=== PATIENT | female | born 1995 | race Caucasian/White ===

== ENCOUNTER 2017-08-02 21:08 | Emergency (ER) | payer MEDICAID ==
[~2017-08-02] VITALS: Ht 154.9 cm; Wt 54.4 kg
[~2017-08-02 21:08] MED LIST: ALBUTEROL0.09 MG/A2 IH; AMOXIL250 MG PO; AMOXIL500 M1 PO; BACTRIM DS 8001 TA1 PO; CIPRO 500MG TA500 MG PO; CLARITIN 10MG T10 MG PO; FIORICET1 CAP PO; FLONASE 50 MCG16 GM; KEFLEX500 M1 PO; MACROBID100 M3 PO; NAPROSYN 250MG250 MG PO; NAPROSYN500 M1 PO; NOMEDS XX; PRENATA1 CTB PO; PROVENTIL0.09 MG/A1 IH; TYLENOL W/CODEI1 TA2 PO; ZOFRAN4 MG PO
[2017-08-02] MEDS ORDERED: PRENATAL PLUS1 TA1 PO (21:18)
--- OUTSIDE RECORDS SUMMARY | 2017-08-02 21:30 | External Medical Summary Rpt | CCD ---
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 INC ROPHYLAXI S /DX 1ST TO 1 HR THERAPEUT 30113 [facility] IC 5 [facility] HOSP INJECTION INC INC IV PUSH EACH NEW DRUG URNLS DIP 46721 [facility] [place] 5 [facility] STICK/TAB INC [place] [address] [facility] [place]OMEN & 5 MEDICAL CARLA PELVIS IMAGING W/O ASS CONTRAST MATERIAL IADNA 77356 [facility] NEISSERIA 5 [facility] DEPT [facility] DEPT GONORRHOE APURVA APURVA AE AMPLIFIED PROBE TQ WET Q0111 [facility] MOLINA 5 [facility] INCL PREP [facility] DEPT [facility] DEPT VAGINAL APURVA APURVA CERV/SKIN SPECIMENS CONTRACEP A4267 [facility] TIVE 5 [facility] SUPPLY [facility] DEPT [facility] DEPT CONDOM APURVA APURVA MALE EACH IADNA 80592 [facility] CHLAMYDIA 5 [facility] DEPT [facility] DEPT TRACHOMAT APURVA APURVA IS AMPLIFIED PROBE TQ SMR PRIM 59989 [facility] SRC WET 5 [facility] DEPT [facility] [place] [address] Á[facility] ABDOMEN & 4 MEDICAL CARLA PELVIS IMAGING W/O ASS CONTRAST MATERIAL MRI ANY 03415 [facility] JT UPPER 4 DANA DANA EXTREMITY W/O CONTRAST MATRL RADEX 17658 RADIOLOGY DEVANTE SHOULDER 4 MAR COMPLETE ASSOCIATE MINIMUM 2 S OF NOTH VIEWS GONADOTRO [address] PIN 4 ALYSSA ALYSSA CHORIONIC FT FT BRYAN ADAMS QUALITATI VE SHOULDER L3650 [facility] 4 TECHNOLOG TECHNOLOG FIG 8 IES INC IES INC ABDUCT RESTRAINE R PREFAB RADEX 30270 RADIOLOG[facility] DEVANTE ELBOW 4 MAR COMPLETE ASSOCIATE MINIMUM 3 [place] [address] [facility] STREPTOCO 3 [facility] CCUS INC INC GROUP A CUL BACT 01181 [facility] XCPT 3 [facility] URINE INC INC BLOOD/STO OL AEROBIC ISOL CUL BACT 99502 COMBINED COMBINED XCPT 2 PHYSICIAN PHYSICIAN URINE S LA S LA BLOOD/STO OL AEROBIC ISOL ANTIBODY 90755 COMBINED COMBINED CHLAMYDIA 2 PHYSICIAN PHYSICIAN S LA S LA INSJ 53585 MICHAEL RODRIGUEZ NON-BIODE 2 ASYA ASYA GRADABLE DRUG DELIVERY IMPLANT ETONOGEST J7307 MICHAEL RODRIGUEZ REL 2 ASYA ASYA CNTRACPT IMPL SYS INCL IMPL & SPL URINE 70439 MICHAEL RODRIGUEZ 2 ASYA ASYA TEST VISUAL COLOR CMPRSN METHS IAADI 55315 [facility] INFFLUENZ 1 [facility] A A VIRUS INC INC IAADI 48968 [facility] INFLUENZA 1 [facility] [place] [address] [facility] STREPTOCO 1 [facility] CCUS INC INC GROUP A REMOVAL 8623 [facility] OF NAIL 0 [facility] NAILBED INC INC OR NAIL FOLD OPHTH 88495 GUZMAN HINDS, MEDICAL 9 [place] XM&EVAL COMPRHNSV ESTAB PT 1/> DETERMINA 86880 GUZMAN HINDS TION 9 [place] [address] [facility] STREPTOCO 9 [facility] CCUS INC INC GROUP A IAADI 82306 [facility] INFFLUENZ 9 [facility] A A VIRUS INC INC IAADI 57309 [facility] INFLUENZA 9 [facility] B VIRUS INC INC SCREENING 54729 [facility] TEST 8 HEALTH N CO PURE [facility] URNLS DIP 70442 [facility] 8 [facility] STICK/TAB INC INC LET REAGENT AUTO MICROSCOP Y Encounters Encounter Start End Date Code Location Performer Type Date EMERGENCY 73938 [facility] 7 7 [facility] DEPARTMEN INC T VISIT HIGH/URGE NT SEVERITY EMERGENCY 30873 [facility] PHYSICIAN [facility]ISIT , [facility] HIGH SEVERITY& THREAT [facility] - 7 7 [facility] OUTPATIEN INC T OFFICE 15610 [facility] 7 7 [facility] T VISIT 5 [facility] - 7 7 [facility] OUTPATIEN INC T OFFICE 12213 [facility] 7 7 ALYSSA HORNER T VISIT 25 PHYSICIAN MINUTES [facility] - 7 7 ALYSSA OUTPATIEN T [facility] - 6 6 [facility] 07782 ROXANN HAQ 6 6 PHYSICIAN DEPARTMEN S, [facility] T VISIT MODERATE SEVERITY [facility] - 6 6 N INPATIENT COMMUNTIY [facility] CHANDU - 6 6 [facility] OUTPATIEN INC T [facility]ICE 00188 [facility] PHYSICIAN JOLENE T VISIT S GROUP 15 [facility]U - 6 6 [facility] OUTPATIEN INC T OFFICE 96982 [facility] 6 6 ALYSSA RUSSO T VISIT 15 PHYSICIAN MINUTES [facility] ST - 6 6 ALYSSA OUTPATIEN MED CTR 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 OFFICE 12541 ST OUTPATIEN 6 6 ALYSSA T VISIT MED CTR [address] MINUTES EMERGENCY 11864 [facility] 6 6 EMERGENCY NICOLE DEPARTMEN T VISIT PHYSICIAN HIGH/URGE S NT SEVERITY OFFICE 14095 [facility] OUTPATIEN 6 6 PHYSICIAN JOLENE T VISIT S GROUP 15 MINUTES OFFICE 39745 [facility] OUTPATIEN 6 6 PHYSICIAN JOLENE T VISIT S GROUP 15 MINUTES OFFICE 05097 [facility] OUTPATIEN 6 6 PHYSICIAN JOLENE T VISIT S GROUP 15 MINUTES HOSPITAL [facility] - 6 6 [facility] OUTPATIEN INC T OFFICE 76456 [facility] OUTPATIEN 6 6 ALYSSA MAR T NEW 30 MINUTES PHYSICIAN S OFFICE 77103 [facility] OUTPATIEN 6 6 PHYSICIAN JOLENE T VISIT S GROUP 15 MINUTES OFFICE 89181 [facility] OUTPATIEN 6 6 PHYSICIAN JOLENE T VISIT S GROUP 15 MINUTES OFFICE 15827 [facility] OUTPATIEN 6 6 PHYSICIAN JOLENE T VISIT S GROUP 15 MINUTES HOSPITAL [facility] - 6 6 [facility] OUTPATIEN INC T INITIAL 51297 [facility] PREVENTIV 6 6 PHYSICIAN JOLENE E S GROUP MEDICINE NEW PT AGE 18-39YRS EMERGENCY 01928 ROXANN MILLARD 6 6 PHYSICIAN BRITTANEY DEPARTMEN S, PLLC T VISIT HIGH/URGE NT SEVERITY OFFICE 19926 [facility] 6 [facility] T VISIT HLTH DEPT HLTH DEPT 15 APURVA APURVA MINUTES [facility] ST[facility] - 5 5 ALYSSA OUTPATIEN SELENA T EMERGENCY [address] [facility]IS[facility] LOW/MODER SEVERITY EMERGENCY 52888 TYREL MONGE 5 5 EMERGENCY DEPARTMEN T VISIT PHYSICIAN HIGH/URGE S NT SEVERITY EMERGENCY 86320 [facility] CHEEK, 5 5 [facility] T VISIT P MODERATE SEVERITY HOSPITAL [facility] - 5 5 [facility] OUTPATIEN INC T EMERGENCY 69690 [facility] HIGH/URGE NT SEVERITY INITIAL 08500 [facility] PRE[facility] 5 5 [facility] DEPT [facility] DEPT MEDICINE [facility] PT AGE 18-39YRS [facility] - 5 [facility] EM[facility] 87854 TYREL GARCÍA 5 5 EMERGENCY [facility] T VISIT PHYSICIAN HIGH/URGE S NT SEVERITY EMERGENCY 78725 [facility] 5 5 [facility]IS[facility] LOW/MODER SEVERITY EMERGENCY 55686 TYREL HALL 5 5 EMERGENCY [facility] T VISIT PHYSICIAN HIGH/URGE S NT SEVERITY EMERGENCY 47663 ST. 5 5 [facility] LOW/MODER SEVERITY [facility] 63275 [facility] 4 4 [facility] DEPARTMEN INC T VISIT LOW/MODER SEVERITY HOSPITAL [facility] - 4 4 [facility] OUTPATIEN INC T EMERGENCY [address] [facility] 4 4 OPAL VISIT EMERGENCY HIGH PHYS SEVERITY& THREAT [facility] ST - [address] 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 EMERGENCY 75619 AKIL MAGAÑAA 4 4 DEPARTMEN T VISIT HIGH/URGE NT SEVERITY HOSPITAL ST - 4 4 ALYSSA OUTPATIEN FT T [facility] Emergency SKYE AMOR MD (ER) 3 16:28 3 17:18 [facility] EMERGENCY 47399 [facility] 3 3 [facility] DEPARTMEN INC T VISIT LOW/MODER SEVERITY HOSPITAL [facility] - 3 3 [facility] OUTPATIEN INC T EMERGENCY 21640 ZULEYMA AMOR 3 3 JAYSON JAYSON DEPARTMEN T VISIT MODERATE SEVERITY EMERGENCY 65831 PRISCILLA BERMUDEZ 1 1 EMERGENCY III [facility] T VISIT MODERATE SEVERITY EMERGENCY 14151 [facility] 1 1 [facility] DEPARTMEN INC T VISIT LOW/MODER SEVERITY HOSPITAL [facility] - 1 1 [facility] OUTPAT[facility] T [facility]92 [facility] 1 [facility] T [facility]ISIT [facility]ES OFF[facility] 07345 [facility] 1 1 [facility] T VISIT [facility]ES OFFICE 27560 [facility] 1 1 [facility] T VISIT [facility] MIN[facility] EMERGENCY 84593 [facility] 0 0 [facility] DEPARTMEN INC T VISIT LOW/MODER SEVERITY HOSPITAL [facility] - 0 0 [facility] OUTPATIEN INC T OFFICE 62906 [facility] 0 0 [facility] T VISIT [facility]ES OFFICE 52895 [facility] 0 0 [facility] T VISIT [facility]ES OFFICE 25784 [facility] 9 9 [facility] T VISIT 5 [facility]ES OFFICE 22933 [facility] 9 9 [facility] T VISIT 5 [facility] MIN[facility]ES OFFICE 64901 [facility] 9 9 [facility] T VISIT 5 [facility]ES OFFICE 32068 [facility] 9 9 [facility] T VISIT 5 [facility] MINUTES EMERGENCY 16793 [facility] 9 9 [facility] DEPARTMEN INC T VISIT MODERATE SEVERITY HOSPITAL [facility] - 9 9 [facility] OUTPATIEN INC T EMERGENCY 24337 PRISCILLA CORRIGAN, 9 9 EMERGENCY [facility] T VISIT HIGH/URGE ASSOCIATE NT S SEVERITY OFFICE 30752 [facility] 9 9 [facility] T VISIT INTERNAL DOUG F 15 MED MINUTES OFFICE 23569 [facility] OUTPATIEN 8 8 AGAPITO FLORES T VISIT INTERNAL 15 MED MINUTES INITIAL 63913 [facility] PREVENTIV 8 8 [facility]ALTH N [facility] NEW PT AGE 5-11 Y[facility] EMERGENCY 35743 [facility] 8 8 [facility] DEPARTMEN INC T VISIT HIGH/URGE NT SEVERITY HOSPITAL [facility] - 8 8 [facility] OUTPATIEN INC T
--- OUTSIDE RECORDS SUMMARY | 2017-08-02 21:30 | External Medical Summary Rpt | CCD ---
Author Author , DERIK Organization DERIK Address Unknown Phone [email or web address] Care Team Providers Care Public Improvement Inspector Name Role Phone [employer] Unavailable Unavailable INC, [employer] BEAVEN, BEAVEN Unavailable Unavailable BEAVEN VILLARREAL, BEAVEN Unavailable Unavailable VILLARREAL BEINEKE, BEINEKE Unavailable Unavailable [facility] Unavailable Unavailable [facility], [facility] Unavailable Unavailable [facility]ATORIES, [facility] RODRIGUEZ ASYA, RORDIGUEZ Unavailable Unavailable ASYA RODRIGUEZ ASYA, RODRIGUEZ Unavailable Unavailable ASYA MARIANO MAR, Unavailable Unavailable [facility]IANO [facility] Unavailable Unavailable [facility], [facility] Un[facility] Unavailable [facility], [facility] Unavailable Unavailable PHYSIC[facility]ANS, [facility] RAFIQ CARLA, Unavailable Unavailable RAFIQ CARLA [id number], Unavailable Unavailable [id number] AMERICA HINDS, Unavailable Unavailable AMERICA HINDS DANA, CLIFTON Unavailable Unavailable DANA CLIFTON DANA, CLIFTON Unavailable Unavailable JR JOELLEN RUFFIN, Unavailable Unavailable JR JOELLEN CHEEK BRITTANEY, VENICE Unavailable Unavailable BRITTANEY [facility] Un[facility] Unavailable [facility], [facility] HARPEL JOLENE, HARPEL Unavailable Unavailable JOLENE [facility] Unavailable Unavailable INC, [facility] Unavailable Unavailable HOSPITAL P, [facility]PITAL P MARK MCDANIEL HARVEY, Unavailable Unavailable MARK [facility], Unavailable Unavailable [facility] ANDREW PA Unavailable Unavailable [facility] Un[facility] PS, [facility], [facility], [facility], Unavailable Unavailable [facility] LEHMKUHL RAC, Unavailable Unavailable [facility] DEBBIE ANT, DEBBIE ANT Unavailable Unavailable [facility] Unavailable Unavailable SERVICES, [facility] BREE PHILLIPS, DOUG Unavailable Unavailable F, BREE PHILLIPS, DOUG [facility], Unavailable Unavailable PLL[facility], [facility] Unavailable Unavailable CENTER, [facility] PERKS, IV DULCE, PERKS, Unavailable [...] [facility] Unavailable Unavailable [facility] Unavailable Unavailable MANAGER CONSUMER INSIGHTS ST, [facility] MANAGER CONSUMER INSIGHTS ST [facility] Unavailable Unavailable PHYSICIANS, [facility] Unavailable Unavailable SELENA, [facility], Unavailable Unavailable [facility] Unavailable Unavailable [facility]OSPITALS, [facility], Unavailable [facility]available [facility]available [facility]available #[id number], [id number] Un[facility] Unavailable [facility]available [facility] WEHRMAN III DULCE, Unavailable Unavailable [facility] [...] PLLC N W/IRREGULAR CYCLE R109 UNSPECIFIED 04-21-2017 [facility] Z720 TOBACCO USE 04-21-[address] [facility] [id number] ENCOUNTER 03-17-2017 [facility] N INJECT CONTRACEPT Z3046 ENCOUNTER 03-17-2017 [facility]ILL[facility] SERV E IMPL [facility] SUBDERMAL CONTRACEPT J309 ALLERGIC 12-07-2016 [facility] UNSPECIFIED INC N939 ABNORMAL 11-20-2016 [facility] & AL[facility] BLEEDING UNSPECIFIED M549 DORSALGIA 10-07-2016 [facility] O9089 OTHER 10-07-2016 [facility] THE [facility]PITALS PUERPERIUM NEC R5383 OTHER 10-07-2016 [facility] C64679 ENCOUNTER 10-07-2016 [facility] IN[facility] PRSC SERV IMPL [facility] SUBDERMAL CONTRACEPT Z3202 ENCOUNTER 10-07-2016 [facility] FOR SERV [facility] TEST RESULT NEGATIVE D29101 CELLULITIS 08-24-2016 [facility] OF [facility] PHYSICIANS, [facility] B40241 SUPERVISION 08-05-2016 [facility] RISK PREG FOUNDATION UNS TRIMESTER [id number] CHORIOAMNIO 08-05-2016 [facility] N[facility] THIRD SERV TRIMESTER FOUNDATION NA/UNS O660 OBSTRUCTED 08-05-2016 [facility] LABOR DUE SERV TO SHOULDER FOUNDATION DYSTOCIA O700 FIRST 08-05-2016 [facility] COMMUNTIY PERINEAL HOSPITA LACERATION DURING DELIVERY O80 ENCOUNTER 08-05-2016 [place] [facility] FULL-TERM GROUP PS UNCOMPLICAT ED DELIVERY Z370 SINGLE LIVE 08-05-2016 [facility] Z3A39 39 WEEKS 08-05-2016 [facility] COMMUNTIY OF HOSPITA [id number] PERSONAL 08-05-2016 [facility] HISTORY OF COMMUNTIY NICOTINE HOSPITA DEPENDENCE M545 LOW BACK 08-04-2016 [facility]IN [facility] INC O2693 08-04-2016 [facility]ATED [facility] CONDITIONS INC UNS 3RD TRIMESTER O471 FALSE LABOR 08-04-2016 [facility] AT/AFTER PHYSICIANS 37 GROUP COMPLETED WEEKS GEST Z131 ENCOUNTER 07-31-2016 [facility] FOR PHYSICIANS SCREENING GROUP FOR DIABETES MELLITUS Z36 ENCOUNTER 07-31-2016 [facility] FOR PHYSICIANS GROUP SCREENING OF MOTHER T17838 OTHER SPEC 06-27-2016 [facility] RELATED PHYSICIANS COND UNS TRIMESTER Z3A33 33 WEEKS 06-27-2016 [facility] AL[facility] OF PHYSICIANS O7D326 INJ 06-26-2016 ST POISON/OTH AL[facility]SSA CONSEQ EXT MED CTR MANAGER CONSUMER INSIGHTS CAUS COMP ST PREG 3RD TRI V76608W ABRASION OF 06-26-2016 ST ABDOMINAL ALYSSA WALL MED CTR MANAGER CONSUMER INSIGHTS INITIAL ST ENCOUNTER E9331IG UNSPECIFIED 06-26-2016 [facility]Y ABDOMEN PHYSICIANS INITIAL ENCOUNTER Z3A30 30 WEEKS 06-26-2016 [facility]STATION [facility]ERGENCY OF PHYSICIANS Z3A34 34 WEEKS 06-26-2016 ST GESTATION ALYSSA OF MED CTR MANAGER CONSUMER INSIGHTS ST Z3480 ENC 06-04-2016 [facility] SUPERVISION PHYSICIANS OTH NORMAL GROUP PREG UNS TRIMESTER Z113 ENCOUNTER 05-14-2016 [facility] SCREEN PHYSICIANS INFECTIONS GROUP SEXL MODE TRANSMISSN [id number] DECREASED 04-28-2016 [facility] MOVEMENTS INC SECOND TRI NA/UNS O4703 FALSE LABOR 04-28-2016 [facility] BEFORE 37 PHYSICIANS CMPLETE GROUP WEEKS GEST [...] VAGINITIS REFERNCE LABORATORIE S O200 THREATENED 12-31-2015 [facility] B13511 ENCOUNTER 12-31-2015 [facility] CUSTOMER LOGISTICS MANAGER EXAM PHYSICIANS GENERAL RTN GROUP W/O ABNORMAL FIND Z048 ENCOUNTER 12-31-2015 [facility] OBSERVATION INC OTHER SPEC REASONS Z3400 ENCOUNTER 12-31-2015 [facility] SUPRVISN PHYSICIANS NORM FIRST GROUP UNS TRI N898 OTHER 12-22-2015 [facility] SPECIFIED PHYSICIANS, NONINFLAMMA PLLC TORY DISORDERS VAGINA O209 HEMORRHAGE 12-22-2015 [place] [facility] UNSPECIFIED O2691 12-22-2015 [facility] RELATED PHYSICIANS, CONDITIONS PLLC UNS 1ST TRIMESTER Z3201 ENCOUNTER 12-04-2015 [facility] TEST RESULT APURVA POSITIVE V2543 SURVEILLANC 01-22-2015 [facility] E PREV PRSC PHYSICIANS IMPL GROUP SUBDERMAL CONTRACEPT 71433 ASTHMA, 01-16-2015 ST. UNSPECIFIED ALYSSA , SELENA UNSPECIFIED STATUS 5990 URINARY 01-16-2015 ST. TRACT ALYSSA INFECTION SELENA SITE NOT SPECIFIED 13775 NAUSEA WITH 01-16-2015 ST. VOMITING ALYSSA SELENA 34464 ABDOMINAL 01-16-2015 ST. PAIN, ALYSSA GENERALIZED SELENA V5869 LONG-TERM 01-16-2015 ST. (CURRENT) ALYSSA USE OF SELENA OTHER MEDICATIONS 2892 NONSPECIFIC 12-27-2014 [facility] [address] HEMATURIA 12-27-2014 [place] UNSPECIFIED [facility] 69561 ABDOMINAL 12-27-2014 [place] PA[place] OTHER MEDICAL SPECIFIED IMAGING ASS SITE V2501 GENERAL 12-04-2014 [facility] PRESCRIPTIO [facility] DEPT N ORAL APURVA CONTRACEPTS 7881 DYSURIA 11-02-2014 ST. ALYSSA ANDERS 58192 ABDOMINAL 11-02-2014 ST. TENDERNESS ALYSSA OTHER ANDERS SPECIFIED SITE 462 ACUTE 10-11-2014 ST. PHARYNGITIS ALYSSA ANDERS 65799 UNSPECIFIED 10-10-2014 [facility] P IN CCE & UNS SITE 44864 VOMITING 07-23-2014 [facility] 74217 ABDOMINAL 07-23-2014 [place] PAIN, MEDICAL UNSPECIFIED IMAGING ASS SITE 67641 PAIN IN 03-06-2014 [place] DANA JOINT, UPPER ARM 37623 CLOSED 03-06-2014 ST FRACTURE OF ALYSSA HEAD OF MED CTR MANAGER CONSUMER INSIGHTS [place]US [address] [address] PAIN IN 02-13-2014 RADIOLOGY JOINT, ASSOCIATES SHOULDER OF [facility] REGION 81275 CLOSED 02-13-2014 RAD[facility] FRACTURE OF ASSOCIATES NECK OF OF [facility] RADIUS 9130 ELB 02-13-2014 ST FORARM&WRST ALYSSA ADAMS ABRASION/FR ICION BURN W/O INF 70235 CONTUSION 02-13-2014 [facility] RYA OF SHOULDER REGION 0340 STREPTOCOCC 12-23-2012 ZULEYMA TYLER AL SORE THROAT V692 PROBLEMS 06-21-2012 [facility] RELATED TO PHYSICIANS HIGH-RISK LA SEXUAL BEHAVIOR V255 INSERTION 06-20-2012 MICHAEL SKY OF IMPLANTABLE SUBDERMAL CONTRACEPTI VE 4659 ACUTE URIS 12-11-2010 [facility]ERG[facility] UNSPECIFIED SERVICES SITE 5368 DYSPEPSIA&O 12-09-2010 [facility] FUNCTION STOMACH 7840 HEADACHE 12-09-2010 [facility] 19414 NAUSEA 12-09-2010 [facility] ALONE [facility] 7841 THROAT PAIN 12-08-2010 [facility] 1320 PEDICULUS 10-14-2010 [facility] 8830 OPEN WOUND 06-30-2010 [facility] WITHOUT INC MENTION COMPLICATIO N 7821 RASH AND 08-05-2009 [facility] OTHER MIDDLE NONSPECIFIC SCHOOL SKIN ERUPTION 3670 HYPERMETROP 07-30-2009 [facility] HINDS V720 EXAMINATION 07-03-2009 [facility] OF EYES [facility]DLE AND VISION S[facility]OL V7219 OTHER 07-03-2009 [facility] EXAMINATION MIDDLE OF EARS SCHOOL AND HEARING 7242 LUMBAGO 06-18-2009 [facility] 4739 UNSPECIFIED 02-01-2009 [facility] [place] [facility] 7806 FEVER & OTH 07-09-2008 [facility] [place] [facility] MED DISTURBANCE S TEMP REG V069 NEED PROPH 05-04-2008 [facility] VACCINATION HEALTH W/UNSPEC CENTRAL COMB BANK ACCT VACCINE V202 ROUTINE 05-04-2008 [facility] OR [facility]ALTH [facility] ACCT CHECK V703 OTH GENERAL [...] 17 17 51 E 9 19 CV VA S OP PH AR 50 MA CY [...] 86 [place] ZA 11 17 17 83 VA 0 26 CV IN S E PH [...] 46 RT ZA 89 16 17 12 VA 0 73 PH IN AR E MA 10 CY MG #5 91 TA BL ET BU 00 12 01 30 3 00 WA Ac TA 59 -2 -2 .0 00 L- ti LB 12 8- 7- 00 04 MA ve -A 64 20 20 52 RT CE 00 16 17 88 TA 1 74 PH TN AR N- MA CA CY FF #5 [...] TH 25 0- 6- 00 PH 72 TN ve IO 27 20 20 AR E [...] ET 25 3- 0- 00 PH 30 TN ve HR 24 20 20 AR E [...] E 25 1- 8- 00 PH 94 TN ve 0. 27 20 20 AR E [...] E 25 2- 7- 00 PH 25 TN ve 0. 27 20 20 AR E [...] Procedure [place] [address] [facility] ABDOMEN & MEDICAL PELVIS IMAGING W/O ASS CONTRAST MATERIAL URNLS DIP 29391 [facility] STICK/TAB INC INC LET REAGENT AUTO MICROSCOP Y BLOOD 23294 [facility] COUNT 7 [facility] COMPLETE INC INC AUTO&[place] [address] [facility] INFUSION 7 [facility] THERAPY/P INC INC ROPHYLAXI S /DX 1ST TO 1 HR THERAPEUT 29838 [facility] IC 7 [facility] INJECTION INC INC IV PUSH EACH NEW DRUG CULTURE 98709 [facility] BACTERIAL 7 [facility] INC INC QUANTTATI VE COLONY COUNT URINE URINE 81102 [facility] TEST INC INC VISUAL COLOR CMPRSN METHS COMPREHEN 94151 [facility] SIVE 7 [facility] [place] [address] [facility] INFUSION 7 [facility] THERAPY INC INC PROPHYLAX IS/DX EA HOUR REMOVAL 19908 TREVOR CORTEZ NON-BIODE 7 MEDICAL GRADABLE SERV DRUG FOUNDATIO DELIVERY N IMPLANT IAADIADOO 48310 [facility] STREPTOCO INC INC CCUS GROUP A IAADIADOO 01741 [facility] INFLUENZA INC INC IADNA 47135 [facility] NEISSERIA 7 ALYSSA ALYSSA GONORRHOE HEALTHCAR HEALTHCAR AE E EDGE E EDGE AMPLIFIED PROBE TQ URINE 41158 [facility] 7 ALYSSA IK TEST VISUAL PHYSICIAN COLOR S CMPRSN METHS IADNA 31741 [facility] CHLAMYDIA 7 ALYSSA ALYSSA TRACHOMAT HEALTHCAR HEALTHCAR IS E EDGE E EDGE AMPLIFIED PROBE TQ IADNA 60478 [facility] GARDNEREL 7 ALYSSA ALYSSA LA VAGINALIS HEALTHCAR HEALTHCAR DIRECT E EDGE E EDGE PROBE TQ IADNA 76117 [facility] TRICHOMON 7 ALYSSA ALYSSA VAGINALIS HEALTHCAR HEALTHCAR DIRECT E EDGE E EDGE PROBE TQ IADNA 53489 [facility] ABELINO 7 ALYSSA ALYSSA SPECIES DIRECT HEALTHCAR HEALTHCAR PROBE TQ E EDGE E EDGE BLOOD 32145 [facility] COUNT 6 HEALTHCAR HEALTHCAR COMPLETE E E AUTOMATED [facility] CYANOCOBA 96784 [facility] C[place]TON 6 HEALTHCAR HEALTHCAR VITAMIN E E B-12 [facility] ETONOGEST J7307 [place] [facility] REL 6 MEDICAL CNTRACPT SERV IMPL SYS FOUNDATIO INCL IMPL N & SPL INSJ 61774 [place] [facility] NON-BIODE 6 MEDICAL GRADABLE SERV DRUG FOUNDATIO DELIVERY N IMPLANT URINE 54591 [place] 6 MEDICAL TEST SERV VISUAL FOUNDATIO [place] [address] [place] THYROID 6 HEALTHCAR HEALTHCAR STIMULATI E E NG [facility] HORMONE TSH NEURAXIAL 08552 [facility] DEBBI[facility] ANT LABOR 6 ANESTHESI ANALG/ANE A GROUP S PLND PS VAGINAL DELIVERY DELIVERY [id number] [facility] PRODUCTS 6 N N OF COMMUNTIY COMMUNTIY CONCEPTIO HOSPITA HOSPITA N EXTERNAL REPAIR [id number] [facility] VULVA 6 N N EXTERNAL COMMUNTIY COMMUNTIY HOSPITA HOSPITA VAGINAL 29434 [place] LOUIEAVEMinor DELIVERY 6 MEDICAL VILLARREAL ONLY SERV W/POSTPAR FOUNDATIO SUSAN CARE N URNLS DIP 11105 [facility] STICK/TAB INC INC LET REAGENT AUTO MICROSCOP Y 25929 [facility] HARPEL NONSTRESS 6 [place] [address] [facility] INFUSION 6 MEM HOSP [facility]OS[facility] THERAPY/P INC INC ROPHYLAXI S /DX 1ST TO 1 HR CULTURE 90297 [facility] BACTERIAL 6 [facility]OS[facility] INC INC QUANTTATI VE COLONY COUNT URINE COLLECTIO 61686 [facility] N VENOUS 6 MEM HOS[facility] MEM [facility]OS[facility] BLOOD INC INC VENIPUNCT URE CUL 97858 [facility] HARPEL PRSMPTV 6 PHYSICIAN JOLENE PTHGNC S GROUP ORGANISM SCRN W/COLONY ESTIMJ PARTICLE 62563 [facility] AGGLUTINA 6 MEM HOS[facility]OS[facility] TION INC INC SCREEN EACH ANTIBODY GLUCOSE 26937 [facility] QUANTITAT 6 MEM HOS[facility]OS[facility] QUIN BLOOD INC INC XCPT REAGENT STRIP 68314 ST [facility] NONSTRESS 6 ALYSSA RAFAELA TEST PHYSICIAN S URNLS DIP [address] 6 ALYSSA ALYSSA STICK/TAB MED CTR MED CTR LET MANAGER CONSUMER INSIGHTS ST MANAGER CONSUMER INSIGHTS ST REAGENT [place] [address] NONSTRESS 6 ALYSSA ALYSSA TEST MED CTR MED CTR MANAGER CONSUMER INSIGHTS ST MANAGER CONSUMER INSIGHTS ST BLOOD [address] TYPING 6 ALYSSA ALYSSA SEROLOGIC MED CTR MED CTR ABO MANAGER CONSUMER INSIGHTS ST MANAGER CONSUMER INSIGHTS ST BLOOD [address] TYPING 6 ALYSSA ALYSSA SEROLOGIC MED CTR MED CTR RH (D) MANAGER CONSUMER INSIGHTS ST MANAGER CONSUMER INSIGHTS ST CULTURE 75504 [facility] CHLAMYDIA 6 PHYSICIAN PHYSICIAN ANY S GROUP S GROUP SOURCE SMR PRIM 86871 [facility] HARPEL SRC WET 6 PHYSICIAN JOLENE MOUNT S GROUP NFCT AGT BASIC 92977 [facility] METABOLIC 6 MEM HOS[facility]OS[facility] PANEL INC INC CALCIUM TOTAL 57831 [facility] RODRIGUEZ NONSTRESS 6 [place] [address] [facility] INFUSION 6 MEM HOSP [facility]OS[facility] THERAPY/P INC INC ROPHYLAXI S /DX 1ST TO 1 HR BLOOD 80284 [facility] COUNT 6 MEM [facility]OS[facility] COMPLETE INC INC AUTO&AUTO DIFRNTL WBC 95849 [facility] HARPEL NONSTRESS 6 PHYSICIAN JOLENE TEST S GROUP CULTURE 23287 [facility] HARPEL CHLAMYDIA 6 PHYSICIAN JOLENE ANY S GROUP SOURCE IADNA 83001 BIO BIO CHLAMYDIA 6 REFERNCE 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 TRACHOMAT IES IES IS AMPLIFIED PROBE TQ CULTURE 42574 [facility] CHLAMYDIA 6 PHYSICIAN JOLENE ANY S GROUP SOURCE CULTURE 64672 [facility] CHLAMYDIA 6 PHYSICIAN JOLENE ANY S GROUP SOURCE CYTP C/V 22620 BIO BIO AUTO THIN 6 REFERNCE REFERNCE LYR LABORATOR LABORATOR PREPJ SCR IES IES MNL RESCR PHYS IADNA 92674 BIO BIO GARDNEREL 6 REFERNCE REFERNCE LA LABORATOR LABORATOR VAGINALIS IES IES AMPLIFIED PROBE TQ IADNA 81305 BIO BIO TRICHOMON 6 REFERNCE 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 VAGINALIS IES IES AMPLIFIED PROBE TECH IAADIADOO 21410 [facility] 6 PHYSICIAN PHYSICIAN TRICHOMON S GROUP S GROUP VAGINALIS DRUG TST G0477 [facility] PRESUMP;C 6 MEM [facility]OS[facility]OS[facility] PBL BEING INC INC READ DC OPT OBV ONLY IADNA 08791 BIO BIO NEISSERIA 6 REFERNCE 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 GONORRHOE IES IES AE AMPLIFIED PROBE TQ IADNA 74556 BIO BIO HERPES 6 REFERNCE REFERNCE SOMPLX LABORATOR LABORATOR VIRUS IES IES AMPLIFIED PROBE TQ IADNA 54989 [facility] NEISSERIA 6 PHYSICIAN JOLENE S GROUP GONORRHOE AE DIRECT PROBE TQ IADNA 26356 BIO BIO CHLAMYDIA 6 REFERNCE 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 TRACHOMAT IES IES IS AMPLIFIED PROBE TQ IADNA 81607 [facility] HERPES 6 PHYSICIAN JOLENE SIMPLX S GROUP VIRUS DIRECT PROBE TQ URINLS 68107 [facility] HAR[facility]L DIP 6 PHYSICIAN JOLENE STICK/TAB S GROUP LET REAGNT NON-AUTO MICRSCPY OBSTETRIC 18272 [facility] PANEL 6 [facility]OS[facility] INC INC COLLECTIO 03616 [facility] N VENOUS 6 [facility] BLOOD INC INC VENIPUNCT URE IADNA NOS 53780 BIO BIO 6 REFERNCE REFERNCE AMPLIFIED LABORATOR LABORATOR PROBE [place] [address] [facility] THYROID 6 [facility] STIMULATI INC INC NG HORMONE TSH INF AGT G0432 [facility] PERKS, IV AB DETECT 6 [facility] EIA TECH INC HIV-1&/HI V-2 SCR URINE 01366 [facility] HARPEL 6 PHYSICIAN JOLENE TEST S GROUP VISUAL COLOR CMPRSN METHS [place] PREG 58906 [place] [facility] UTERUS 6 MEDICAL CARLA REAL TIME IMAGING W/IMAGE ASS DCMTN TRANSVAG URINE 28528 [facility] DEPT HLTH DEPT VISUAL APURVA APURVA COLOR CMPRSN METHS REMOVAL 87746 [facility] RODRIGUEZ NON-BIODE 5 PHYSICIAN ASYA GRADABLE S GROUP DRUG DELIVERY IMPLANT URNLS DIP 72349 [facility] 5 ALYSSA SHAH STICK/TAB SELENA WALTERS LET REAGENT AUTO MICROSCOP Y GONADOTRO 79194 [facility] PIN 5 ALYSSA SHAH CHORIONIC SELENA WALTERS QUALITATI VE BLOOD 57404 [facility] COUNT 5 ALYSSA SHAH COMPLETE SELENA WALTERS AUTO&AUTO DIFRNTL WBC BASIC 79818 [facility] METABOLIC 5 ALYSSA SHAH PANEL SELENA WALTERS CALCIUM TOTAL CUL BACT 97849 [facility] AEROBIC 5 ALYSSA SHAH [facility] SELENA WALTERS METHS DEFINITIV E EA ISOL CULTURE [address] BACTERIAL 5 ALYSSA WALTERS QUANTTATI VE COLONY COUNT URINE COLLECTIO [address] N VENOUS 5 ALYSSA SHAH BLOOD SELENA WALTERS VENIPUNCT URE BASIC 26475 [facility] METABOLIC 5 [facility] PANEL INC INC CALCIUM TOTAL URINE 97369 [facility] [address] [facility] TEST INC [place] [address] [facility] INFUSION 5 [facility] THERAPY/P INC INC ROPHYLAXI S /DX 1ST TO 1 HR THERAPEUT 69026 [facility] IC 5 [facility] INJECTION INC INC IV PUSH EACH NEW DRUG URNLS DIP 92843 [facility] 5 [facility] STICK/TAB INC [place] [address] [facility] RAFI[facility] ABDOMEN & 5 MEDICAL CARLA PELVIS IMAGING W/O ASS CONTRAST MATERIAL IADNA 46480 [facility] NEISSERIA [facility] DEPT [facility] DEPT GONORRHOE APURVA APURVA AE AMPLIFIED PROBE TQ WET Q0111 [facility] MOLINA 5 [facility] INCL PREP [facility] DEPT [facility] DEPT VAGINAL APURVA APURVA CERV/SKIN SPECIMENS CONTRACEP A4267 [facility] TIVE 5 [facility] SUPPLY [facility] DEPT [facility] DEPT CONDOM APURVA APURVA MALE EACH IADNA 80177 [facility] CHLAMYDIA 5 [facility] DEPT [facility] DEPT TRACHOMAT APURVA APURVA IS AMPLIFIED PROBE TQ SMR PRIM 31956 [facility] SRC WET 5 [facility] DEPT [facility] [place] [address] [facility] RA[facility] ABDOMEN & 4 MEDICAL CARLA PELVIS IMAGING W/O ASS CONTRAST MATERIAL MRI ANY [address] [facility] JT UPPER 4 DANA DANA EXTREMITY W/O CONTRAST MATRL RADEX 44061 RADIOLOGY DEVANTE SHOULDER 4 MAR COMPLETE ASSOCIATE MINIMUM 2 S OF NOTH VIEWS GONADOTRO [address] PIN 4 ALYSSA ALYSSA CHORIONIC FT FT BRYAN ADAMS QUALITATI VE SHOULDER L3650 [facility] 4 TECHNOLOG TECHNOLOG FIG 8 IES INC IES INC ABDUCT RESTRAINE R PREFAB RADEX 59903 RADIOLOGY DEVANTE ELBOW 4 MAR COMPLETE ASSOCIATE MINIMUM 3 [place] [address] [facility] CCUS INC INC GROUP A CUL BACT 73919 [facility] XCPT [facility] URINE INC INC BLOOD/STO OL AEROBIC ISOL CUL BACT 64573 COMBINED COMBINED XCPT 2 PHYSICIAN PHYSICIAN URINE S LA S LA BLOOD/STO OL AEROBIC ISOL ANTIBODY 04457 COMBINED COMBINED CHLAMYDIA 2 PHYSICIAN PHYSICIAN S LA S LA INSJ 28686 MICHAEL RODRIGUEZ NON-BIODE 2 ASYA ASYA GRADABLE DRUG DELIVERY IMPLANT ETONOGEST J7307 MICHAEL RODRIGUEZ REL 2 ASYA ASYA CNTRACPT IMPL SYS INCL IMPL & SPL URINE 51836 MICHAEL RODRIGUEZ 2 ASYA ASYA TEST VISUAL COLOR CMPRSN METHS IAADI 12588 [facility] INFFLU[facility]Z 1 [facility] A A VIRUS INC INC IAADI 88494 [facility] INFLUENZA 1 [facility] [place] [address] [facility] STREPT[facility] 1 [facility] CCUS INC INC GROUP A REMOVAL 8623 [facility] OF NAIL 0 [facility] NAILBED INC INC OR NAIL FOLD OPHTH 97476 [facility]INDS, MEDICAL 9 [place] XM&EVAL COMPRHNSV ESTAB PT 1/> DETERMINA 28189 [facility]IN[facility] TION 9 [place] [address] [facility] STREPT[facility]O 9 [facility] CCUS INC INC GROUP A IAADI 31716 [facility] INFFLUENZ 9 [facility] A A VIRUS INC INC IAADI 33042 [facility] INFLUENZA 9 [facility] B VIRUS INC INC SCREENING 04437 DHS/CO [facility] TEST 8 HEALTH N CO PURE TONE [facility] AIR ONLY BANK [facility]CT C[facility] URNLS DIP 38092 [facility] STICK/TAB INC INC LET REAGENT AUTO MICROSCOP Y Encounters Encounter Start End Date Code Location Performer Type Date EMERGENCY 89133 [facility] DEPARTMEN INC T VISIT HIGH/URGE NT SEVERITY [facility]ERGENCY [facility]ISIT , [facility] HIGH SEVERITY& [facility] OUTPATIEN INC T OFFICE 17103 [facility] 7 7 [facility] T VISIT 5 [facility] - 7 7 [facility] OUTPATIEN INC T OFFICE 85701 [facility] 7 ALYSSA HORNER T VISIT 25 PHYSICIAN MINUTES [facility] - 7 7 ALYSSA OUTPATIEN T [facility] - 6 6 [facility] 97509 ROXANN HAQ 6 6 PHYSICIAN DEPARTMEN S, [facility] [facility] T VISIT MODERATE SEVERITY [place] [facility] - 6 6 N INPATIENT COMMUNTIY [facility] - 6 6 [facility] T OFFICE 92113 [facility] PHYSICIAN JOLENE T VISIT S GROUP 15 [facility] CHANDU - 6 6 [facility] OUTPATIEN INC T OFFICE 73977 [facility] 6 6 ALYSSA RUSSO T VISIT 15 PHYSICIAN MINUTES [facility] ST - 6 6 ALYSSA OUTPATIEN MED CTR T MANAGER CONSUMER INSIGHTS ST OFFICE [address]84 ST OUTPATIEN 6 6 ALYSSA T VISIT MED CTR [address] MINUTES EMERGENCY 74992 [facility] 6 6 EMERGENCY NICOLE DEPARTMEN T VISIT PHYSICIAN HIGH/URGE S NT SEVERITY OFFICE 31351 [facility] OUTPATIEN 6 6 PHYSICIAN JOLENE T VISIT S GROUP 15 MINUTES OFFICE 54377 [facility] OUTPATIEN 6 6 PHYSICIAN JOLENE T VISIT S GROUP 15 MINUTES OFFICE 96050 [facility] OUTPATI[facility] 6 6 PHYSICIAN JOLENE T VISIT S GROUP 15 MINUTES [facility]OSPITAL [facility] - 6 6 [facility] INC T OFFICE [facility]1738 [facility] OUTPATIEN 6 6 ALYSSA MAR T NEW 30 MINUTES PHYSICIAN S OFFICE 84017 [facility] OUTPATIEN 6 6 PHYSICIAN JOLENE T VISIT S GROUP 15 MINUTES OFFICE 67265 [facility] OUTPATIEN 6 6 PHYSICIAN JOLENE T VISIT S GROUP 15 MINUTES OFFICE 95591 [facility] OUTPATIEN 6 6 PHYSICIAN JOLENE T VISIT S GROUP 15 MINUTES HOSPITAL [facility] - 6 6 [facility] OUT[facility] INC T INITIAL 18492 [facility] PREVENTIV 6 6 PHYSICIAN JOLENE E S GROUP MEDICINE NEW PT AGE 18-39YRS EMERGENCY 26569 ROXANN MILLARD 6 6 PHYSICIAN BRITTANEY DEPARTMEN S, PLL[facility] T VISIT HIGH/URGE NT SEVERITY OFFICE 24485 [facility] T VISIT [facility] DEPT [facility] DEPT 15 APURVA AP[facility]VA [address] [facility] - 5 5 ALYSSA OUTPATIEN SELENA T EMERGENCY 51651 [facility] LOW/MODER SEVERITY EMERGENCY 03683 TYREL MONGE 5 5 EMERGENCY DEPARTMEN T VISIT PHYSICIAN HIGH/URGE S NT SEVERITY EMERGENCY 37208 CHANDU CHEEK, [address] [facility] T VISIT P MODERATE SEVERITY HOSPITAL [facility] - 5 5 [facility] OUT[facility] INC T EMERGENCY 85921 [facility]URGE NT SEVERITY INITIAL 85414 [facility] 5 5 [facility] E [facility] DEPT [facility] DEPT MEDICINE [facility] PT AGE 18-39YRS [place] [facility] - 5 [facility] 67009 TYREL GARCÍA 5 5 EMERGENCY [facility] T VISIT PHYSICIAN HIGH/URGE S NT SEVERITY EMERGENCY 74173 ST[facility] 5 [facility] LOW/MODER SEVERITY EMERGENCY 67784 TYREL HALL 5 5 EMERGENCY [facility] T VISIT PHYSICIAN HIGH/URGE S NT SEVERITY EMERGENCY 76991 ST. 5 5 [facility] LOW/MODER SEVERITY [facility] 93817 [facility]U 4 4 [facility] DEPARTMEN INC T VISIT LOW/MODER SEVERITY HOSPITAL CHANDU - [address] 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 ST EMERGENCY 55135 AKIL MAGAÑAA 4 4 DEPARTMEN T VISIT HIGH/URGE NT SEVERITY HOSPITAL ST - 4 4 ALYSSA OUTPATIEN FT T DENNIS Emergency SKYE AMOR MD (ER) 3 16:28 3 17:18 [facility] EMERGENCY 19017 [facility] 3 3 [facility] DEPART[facility] INC T VISIT LOW/MODER SEVERITY [facility]OSPITAL [facility] - 3 3 [facility] OUTPATIEN INC T EMERGENCY 74242 ZULEYMA AMOR 3 3 JAYSON JAYSON DEPARTMEN T VISIT MODERATE SEVERITY EMERGENCY 17930 PRISCILLA BERMUDEZ 1 1 EMERGENCY III [facility] SERVICES T VISIT MODERATE SEVERITY EMERGENCY 32602 [facility] 1 1 [facility] DEPARTMEN INC T VISIT LOW/MODER SEVERITY [facility] - 1 1 [facility] T [facility] 13940 [facility] 1 [facility] 72288 [facility] 1 [facility] T [facility]IS[facility]ES OFFICE 50295 [facility] 1 1 [facility] T [facility]ISIT [facility] MIN[facility] EMERGENCY 61012 [facility] 0 0 [facility] DEPART[facility] INC T VISIT LOW/MODER SEVERITY [facility] - 0 0 [facility] T OFFICE 37251 [facility] 0 0 [facility] T VISIT [facility]ES OFFICE 14480 [facility] 0 0 [facility] T VISIT [facility]ES OFFICE 66201 [facility] 9 9 [facility] T VISIT [facility]ES OFFICE 65621 [facility] 9 9 [facility] T VISIT 5 [facility]ES OFFICE 11677 [facility] 9 9 [facility]LE [facility] T VISIT 5 [facility]ES OFFICE 22586 [facility] 9 9 [facility]DLE MIDDLE T VISIT 5 [facility] MINUT[facility] EMERGENCY 84520 [facility] 9 9 [facility] DEPARTMEN INC T VISIT MODERATE SEVERITY [facility] - 9 9 [facility] OUTPATIEN INC T EMERGENCY 62474 PRISCILLA CORRIGAN, 9 9 EMERGENCY [facility] VIS[facility] HIGH/URGE ASSOCIATE NT S SEVERITY OFFICE 80674 [facility] OUT[facility] 9 9 AGAPITO PHILLIPS T VISIT INTERNAL DOUG F 15 MED MINUTES OFFICE 50075 [facility] OUTPATIEN 8 8 AGAPITO FLORES T VISIT INTERNAL 15 MED MINUTES INITIAL 90551 DHS/CO [facility] PREVENTIV 8 8 HEALTH N CO E [facility] NEW PT AGE 5-11 YRS EMERGENCY 40252 [facility] 8 8 [facility] DEPARTMEN INC T VISIT HIGH/URGE NT SEVERITY [facility]OSPITAL [facility] - 8 8 [facility] OUTPATIEN INC T
--- OUTSIDE RECORDS SUMMARY | 2017-08-02 21:34 | External Medical Summary Rpt | CCD ---
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 9 [facility] T VISIT [facility]ES OFFICE 32288 [facility] 9 9 [facility] T VISIT 5 [facility] MINUTES EMERGENCY 02546 PRISCILLA CORRIGAN, 9 9 EMERGENCY [facility] DE[facility] SERVICES O T VISIT HIGH/URGE ASSOCIATE NT S SEVERITY [facility]OSPITAL [facility] - 9 9 [facility] INC T EMERGENCY 79540 [facility] 9 9 [facility] DE[facility] INC T VISIT MODERATE SEVERITY OFFICE 66866 [facility] 9 9 AGAPITO PHILLIPS T VISIT INTERNAL DOUG F 15 MED MINUTES OFFICE 41493 [facility] 8 8 AGAPITO FLORES T VISIT INTERNAL 15 MED MINUTES INITIAL 77942 [facility] PREVENTIV 8 8 HEALTH N CO E [facility] NEW PT AGE 5-11 Y[facility] CHANDU - 8 8 [facility] OUTPATIEN INC T EMERGENCY 30440 [facility] 8 8 [facility] DE[facility] INC T VISIT HIGH/URGE NT SEVERITY
--- OUTSIDE RECORDS SUMMARY | 2017-08-02 21:34 | External Medical Summary Rpt | CCD ---
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 Name Role Phone [employer] Unavailable Unavailable [...] PHYSICIANS RAFIQ CARLA, Unavailable Unavailable RAFIQ CARLA [id number], Unavailable Unavailable [id number] AMERICA HINDS, Unavailable Unavailable AMERICA HINDS FARBER Unavailable Unavailable JR JOELLEN RUFFIN, Unavailable Unavailable JR JOELLEN CHEEK BRITTANEY, VENICE Unavailable Unavailable BRITT[facility] HARPEL JOLENE, HARPEL Unavailable Unavailable JOLENE [facility] Unavailable Unavailable INC, [facility] Unavailable [facility]available HOSPITAL P, [facility] MARK MCDANIEL HARVEY, Unavailable Unavailable MARK [facility], Unavailable Unavailable [facility] ANDREW PA Unavailable Unavailable [facility] Un[facility] Unavailable GROUP PS, [facility] Un[facility] Un[facility], [facility], [facility], Unavailable Unavailable [facility] LEHMKUHL RAC, Unavailable Unavailable [facility]HMK[facility] RAC DEBBIE ANTDEBBIE ANT Unavailable Unavailable [facility] Unavailable Unavailable SERVICES, [facility] DOUG GIRON JR Unavailable BREE Lombardi JR, WILLIAM F [facility], Unavailable Unavailable ROXANN PENA, [facility] Un[facility] Unavailable [facility], [facility] PERKS, IV DULCE, PERKS, Unavailable Unavailable [facility] Unavailable Unavailable OF NOT, [facility] NOT RENUSCH, RENUSCH Unavailable Unavailable DEVANTE MAR, DEVANTE Unavailable Unavailable MAR [facility], Unavailable Unavailable [facility], Unavailable Unavailable [facility] HALL NAFISA, HALL Unavailable Unavailable NAFISA SOKAN, LUIS ENRIQUE O, Unavailable Unavailable SOKAN, LUIS ENRIQUE O [facility], [facility] Unavailable Unavailable BRYAN, [facility] Un[facility] Unavailable Unavailable PIPE OUT WORKER ST, [facility] PIPE OUT WORK[facility] Unavailable Unavailable PHYSICIANS, [facility] Unavailable Unavailable SELNEA, [facility] SELENA [facility] ANDERS, Unavailable Unavailable [facility] Unavailable [facility]available [facility]ITALS, [facility]SO, Unavailable Unavailable ISHA RUSSO [facility] Unavailable Unavailable #584, [facility] Un[facility] Un[facility] DEPT AP[facility]VA, [facility] Unavailable Unavailable DEPT [facility], [facility] WEHRMAN III DULCE, Unavailable [...] PLLC N W/IRREGULAR CYCLE R109 UNSPECIFIED 04-21-2017 [facility] Z720 TOBACCO USE 04-21-2017 [facility] [id number] ENCOUNTER 03-17-2017 [facility] N INJECT CONTRACEPT Z3046 ENCOUNTER 03-17-2017 [place] [facility] SERV E IMPL [facility] SUBDERMAL CONTRACEPT J309 ALLERGIC 12-07-2016 [facility] UNSPECIFIED INC N939 ABNORMAL 11-20-2016 [facility] & AL[facility] V[facility]AL PHYSICIANS BLEEDING UNSPECIFIED M549 DORSALGIA 10-07-2016 [facility] O9089 OTHER 10-07-2016 [facility] COMPL[facility]ATIO [facility] NS OF THE HOSPITALS PUERPERIUM NEC R5383 OTHER 10-07-2016 [facility] B46895 ENCOUNTER 10-07-2016 [place] [facility] PRSC SERV IMPL [facility] SUBDERMAL CONTRACEPT Z3202 ENCOUNTER 10-07-2016 [facility] TEST RESULT NEGATIVE N32097 CELLULITIS 08-24-2016 [facility]OXANN OF FACE PHYSICIANS, [facility] [id number] SUPERVISION 08-05-2016 [place] [facility] RISK PREG [facility]OUNDATION UNS TRIMESTER [id number] CHORIOAMNIO 08-05-2016 [place] [facility] THIRD SERV TRIMESTER FOUNDATION NA/UNS O660 OBSTRUCTED 08-05-2016 [place] [facility] LAB[facility] DUE SERV TO SHOULDER FOUNDATION DYSTOCIA O700 FIRST 08-05-2016 [facility] PERINEAL HOSPITA LACERATION DURING DELIVERY O80 ENCOUNTER 08-05-2016 [place] [facility] FULL-TERM GROUP PS UNCOMPLICAT ED DELIVERY Z370 SINGLE LIVE 08-05-2016 [facility] Z3A39 39 WEEKS 08-05-2016 [facility] COMMUNTIY OF HOSPITA [id number] PERSONAL 08-05-2016 [facility] OF COMMUNTIY NICOTINE HOSPITA DEPENDENCE M545 LOW BACK 08-04-2016 [facility] PAIN [facility] INC O2693 08-04-2016 [facility] RELATED [facility] CONDITIONS INC UNS 3RD TRIMESTER O471 FALSE LABOR 08-04-2016 H AT/AFTER PHYSICIANS 37 GROUP COMPLETED WEEKS GEST Z131 ENCOUNTER 07-31-2016 [facility] SCREENING GROUP FOR DIABETES MELLITUS Z36 ENCOUNTER 07-31-2016 [facility] GROUP SCREENING OF MOTHER U70183 OTHER SPEC 06-27-2016 AL[facility] RELATED PHYSICIANS COND UNS TRIMESTER Z3A33 33 WEEKS 06-27-2016 ST GESTATION ALYSSA OF PHYSICIANS J7Q774 INJ 06-26-2016 ST POISON/OTH AL[facility]SSA CONSEQ EXT MED CTR PIPE OUT WORKER CAUS COMP ST PREG 3RD TRI [id number] ABRASION OF 06-26-2016 ABDOMINAL ALYSSA WALL MED CTR PIPE OUT WORKER INITIAL ST ENCOUNTER [id number] UNSPECIFIED 06-26-2016 [facility]GENCY ABDOMEN PHYSICIANS INITIAL ENCOUNTER Z3A30 30 WEEKS 06-26-2016 [facility] EMERGENCY OF PHYSICIANS Z3A34 34 WEEKS 06-26-2016 GE[facility] ALYSSA OF MED CTR PIPE OUT WORKER ST Z3480 ENC 06-04-2016 [facility] SUPERVISION PHYSICIANS OTH NORMAL GROUP PREG UNS TRIMESTER Z113 ENCOUNTER 05-14-2016 [facility] SCREEN PHYSICIANS INFECTIONS GROUP SEXL MODE TRANSMISSN [id number] DECREASED 04-28-2016 [facility] MOVEMENTS INC SECOND TRI NA/UNS O4703 FALSE LABOR 04-28-2016 [facility] BEFORE 37 PHYSICIANS CMPLETE GROUP WEEKS [...] VAGINITIS REFERNCE LABORATORIE S O200 THREATENED 12-31-2015 [facility] J91434 ENCOUNTER 12-31-2015 [facility] DENTAL HYGIENE INSTRUCTOR EXAM PHYSICIANS GENERAL RTN GROUP W/O ABNORMAL FIND Z048 ENCOUNTER 12-31-2015 [facility] EXAM & [facility] OBSERVATION INC OTHER SPEC REASONS Z3400 ENCOUNTER 12-31-2015 [facility] SUPRVISN PHYSICIANS NORM FIRST GROUP UNS TRI N898 OTHER 12-22-2015 [facility] SPECIFIED PHYSICIANS, NONINFLAMMA PLLC TORY DISORDERS VAGINA O209 HEMORRHAGE 12-22-2015 [place] [facility] UNSPECIFIED O2691 12-22-2015 [facility]OXANN RELATED PHYSICIANS, CONDITIONS PLLC UNS 1ST TRIMESTER Z3201 ENCOUNTER 12-04-2015 [facility] DE[facility] TEST RESULT APURVA POSITIVE V2543 SURVEILLANC 01-22-2015 [facility] E PREV PRSC PHYSICIANS IMPL GROUP SUBDERMAL CONTRACEPT 67080 ASTHMA, 01-16-2015 ST. UNSPECIFIED SELENA SHAH UNSPECIFIED STATUS 5990 URINARY 01-16-2015 ST. TRACT ALYSSA INFECTION SELENA SITE NOT SPECIFIED 41492 NAUSEA WITH 01-16-2015 ST. VOMITING ALYSSA SELENA 13745 ABDOMINAL 01-16-2015 ST. PAIN, ALYSSA GENERALIZED SELENA V5869 LONG-TERM 01-16-2015 ST. (CURRENT) ALYSSA USE OF SELENA OTHER MEDICATIONS 2892 NONSPECIFIC 12-27-2014 [facility] [place] [address] HEMATURIA 12-27-2014 [place] U[facility]PECIFIED [facility] 03310 ABDOMINAL 12-27-2014 [place] [facility] OTHER MEDICAL SPECIFIED IMAGING ASS SITE V2501 GENERAL 12-04-2014 [facility] PRESCRIPTIO [facility] DEPT N ORAL APURVA CONTRACEPTS 7881 DYSURIA 11-02-2014 ST. ALYSSA ANDERS 33337 ABDOMINAL 11-02-2014 ST. TENDERNESS ALYSSA OTHER ANDERS SPECIFIED SITE 462 ACUTE 10-11-2014 ST. PHARYNGITIS ALYSSA ANDERS 79038 UNSPECIFIED 10-10-2014 [facility] P IN CCE & UNS SITE 91711 VOMITING 07-23-2014 [facility] 53714 ABDOMINAL 07-23-2014 [place] PAIN, MEDICAL UNSPECIFIED IMAGING ASS SITE 28271 PAIN IN 03-06-2014 [place] DANA JOINT, UPPER ARM 44304 CLOSED 03-06-2014 ST FRACTURE OF ALYSSA HEAD OF MED CTR [facility] [place] [address] PAIN IN 02-13-2014 RADIOLOGY JOINT, ASSOCIATES SHOULDER OF [facility] 62838 CLOSED 02-13-2014 RADIOLOGY FRACTURE OF ASSOCIATES NECK OF OF [facility] RADIUS 9130 ELB 02-13-2014 ST FORARM&WRST ALYSSA ADAMS ABRASION/FR ICION BURN W/O INF 69992 CONTUSION 02-13-2014 [place] OF SHOULDER REGION 0340 STREPTOCOCC 12-23-2012 ZULEYMA TYLER AL SORE THROAT V692 PROBLEMS 06-21-2012 [facility] RELATED TO PHYSICIANS HIGH-RISK LA SEXUAL BEHAVIOR V255 INSERTION 06-20-2012 MICHAEL SKY OF IMPLANTABLE SUBDERMAL CONTRACEPTI VE 4659 ACUTE URIS 12-11-2010 [facility] UNSPECIFIED SERVICES SITE 5368 DYSPEPSIA&O 12-09-2010 [facility] FUNCTION STOMACH 7840 HEADACHE 12-09-2010 [facility] 49048 NAUSEA 12-09-2010 [facility] 7841 [...] [facility] 7242 LUMBAGO 06-18-2009 [facility] 4739 UNSPECIFIED 02-01-2009 [facility] 7806 FEVER & OTH 07-09-2008 [facility] PHYSIOLOGIC INTERNAL MED DISTURBANCE S [...] 17 17 51 E 9 19 CV IA S OP PH AR 50 MA CY [...] 86 [place] ZA 11 17 17 83 IA 0 26 CV IN S E PH [...] 46 RT ZA 89 16 17 12 IA 0 73 PH IN AR E MA 10 CY MG #5 91 TA BL ET BU 00 12 01 30 3 00 WA Ac TA 59 -2 -2 .0 00 L- ti LB 12 8- 7- 00 04 MA ve -A 64 20 20 52 RT CE 00 16 17 88 TA 1 74 PH IA AR N- MA CA CY FF #5 [...] TH 25 0- 6- 00 PH 72 IA ve IO 27 20 20 AR E [...] ET 25 3- 0- 00 PH 30 IA ve HR 24 20 20 AR E [...] E 25 1- 8- 00 PH 94 IA ve 0. 27 20 20 AR E 5% 60 08 08 MA JR 4 CY LO WI TI #5 LL ON 43 IA 7 M F OV 51 07 07 00 59 1 CV 46 MC Ac ID 67 -0 -1 .0 S 22 KE ti E 25 2- 7- 00 PH 25 IA ve 0. 27 20 20 AR E [...] Procedure DOS Code Location Performer Comment URINE 10217 [facility] TEST INC [place] [address] [facility] INFUSION 7 [facility] THERAPY INC INC PROPHYLAX IS/DX EA HOUR CULTURE 93821 [facility] BACTERIAL 7 [facility] INC [place] [address] [facility] ABDOMEN & 7 [facility] PELVIS INC INC W/O CONTRAST MATERIAL URNLS DIP 71306 [facility] 7 [facility] STICK/TAB INC INC LET REAGENT AUTO MICROSCOP Y BLOOD 24007 [facility] COUNT 7 [facility] COMPLETE INC INC AUTO&[place] [address] [facility] INFUSION 7 [facility] THERAPY/P INC INC ROPHYLAXI S /DX 1ST TO 1 HR THERAPEUT 10260 [facility] IC 7 [facility] INJECTION INC INC IV PUSH EACH NEW DRUG COMPREHEN 52289 [facility] SIVE 7 [facility] METABOLIC INC INC PANEL REMOVAL 09297 [place] NON-BIODE 7 MEDICAL GRADABLE SERV DRUG FOUNDATIO DELIVERY N IMPLANT IAADIADOO 80329 [facility] INFLUENZA INC INC IAADIADOO 85338 [facility] STREPTOCO INC INC CCUS GROUP A IADNA [address] ST GARDNEREL 7 ALYSSAALYSON SHAH LA VAGINALIS HEALTHCAR HEALTHCAR DIRECT E EDGE E EDGE PROBE TQ IADNA 41532 ST ABELINO 7 ALYSSAALYSON SHAH SPECIES DIRECT HEALTHCAR HEALTHCAR PROBE TQ E EDGE E EDGE IADNA [address]13 ST NEISSERIA 7 ALYSSA ALYSSA GONORRHOE HEALTHCAR HEALTHCAR AE E EDGE E EDGE AMPLIFIED PROBE TQ IADNA 34206 TRICHOMON 7 ALYSSASALVADOR SHAH VAGINALIS HEALTHCAR HEALTHCAR DIRECT E EDGE E EDGE PROBE TQ IADNA 98680 CHLAMYDIA 7 ALYSSAALYSON SHAH TRACHOMAT HEALTHCAR HEALTHCAR IS E EDGE E EDGE AMPLIFIED PROBE TQ URINE 82966 ST LAMOT-WAS 7 ALYSSA IK TEST VISUAL PHYSICIAN COLOR S CMPRSN METHS URINE 31066 [place] 6 MEDICAL TEST SERV VISUAL FOUNDATIO COLOR N CMPRSN METHS CYANOCOBA 60020 [place] 6 HEALTHCAR HEALTHCAR VITAMIN E E B-12 [facility] BLOOD 82544 [facility] COUNT 6 HEALTHCAR HEALTHCAR COMPLETE E E AUTOMATED [facility] INSJ 12378 [place] NON-BIODE 6 MEDICAL GRADABLE SERV DRUG [place] [address] [facility] THYROID 6 HEALTHCAR HEALTHCAR STIMULATI E E NG [facility] HORMONE TSH ETONOGEST J7307 [place] REL 6 MEDICAL CNTRACPT SERV IMPL SYS FOUNDATIO INCL IMPL N & SPL VAGINAL 74994 [place] DELIVERY 6 MEDICAL VILLARREAL ONLY SERV W/POSTPAR FOUNDATIO SUSAN CARE N REPAIR [id number] [facility] VULVA 6 N N EXTERNAL COMMUNTIY COMMUNTIY HOSPITA HOSPITA DELIVERY [id number] [facility] PRODUCTS 6 N N OF COMMUNTIY COMMUNTIY CONCEPTIO HOSPITA HOSPITA N EXTERNAL NEURAXIAL 32518 [facility] ANT LABOR 6 ANESTHESI ANALG/ANE A GROUP S PLND PS VAGINAL DELIVERY CULTURE 73315 [facility] BACTERIAL 6 [facility] INC INC QUANTTATI VE COLONY COUNT URINE 03840 [facility] NONSTRESS 6 [facility] TEST INC INC URNLS DIP 95724 [facility] 6 [facility] STICK/TAB INC [place] [address] [facility] INFUSION 6 [facility] THERAPY/P INC INC ROPHYLAXI S /DX 1ST TO 1 HR COLLECTIO 13712 [facility] N VENOUS 6 [facility] BLOOD INC INC VENIPUNCT URE PARTICLE 55171 [facility] AGGLUTINA 6 [facility] TION INC INC SCREEN EACH ANTIBODY GLUCOSE 70839 [facility] QUANTITAT 6 [facility] QUIN BLOOD INC INC XCPT REAGENT STRIP CUL 13342 [facility] HARPEL PRSMPTV 6 PHYSICIAN JOLENE [facility] S GROUP ORGANISM SCRN W/COLONY ESTIMJ 27273 ST VORMBROCK NONSTRESS 6 ALYSSA RAFAELA TEST PHYSICIAN S [address] NONSTRESS 6 ALYSSA ALYSSA TEST MED CTR MED CTR PIPE OUT WORKER ST PIPE OUT WORKER ST URNLS DIP [address] 6 ALYSSA ALYSSA STICK/TAB MED CTR MED CTR LET PIPE OUT WORKER ST PIPE OUT WORKER ST REAGENT AUTO MICROSCOP Y BLOOD [address] TYPING 6 ALYSSA ALYSSA SEROLOGIC MED CTR MED CTR RH (D) PIPE OUT WORKER ST PIPE OUT WORKER ST BLOOD [address] TYPING 6 ALYSSA ALYSSA SEROLOGIC MED CTR MED CTR ABO PIPE OUT WORKER ST PIPE OUT WORKER ST CULTURE 95575 [facility] CHLAMYDIA 6 PHYSICIAN PHYSICIAN ANY S GROUP S GROUP SOURCE SMR PRIM 18706 [facility] SRC WET 6 PHYSICIAN JOLENE GARCÍA S GROUP NFCT AGT BASIC 32840 [facility] METABOLIC 6 [facility] PANEL INC INC CALCIUM TOTAL 75736 [facility] RODRIGUEZ NONSTRESS 6 [place] [address] [facility] INFUSION 6 [facility] THERAPY/P INC INC ROPHYLAXI S /DX 1ST TO 1 HR BLOOD 87713 [facility] COUNT 6 [facility] COMPLETE INC INC AUTO&AUTO DIFRNTL WBC 16824 [facility] NONSTRESS 6 PHYSICIAN JOLENE TEST S GROUP IADNA 59101 BIO BIO CHLAMYDIA 6 REFERNCE 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 TRACHOMAT IES IES IS AMPLIFIED PROBE TQ CULTURE 72516 [facility] CHLAMYDIA 6 PHYSICIAN JOLENE ANY S GROUP SOURCE CULTURE 72914 [facility] CHLAMYDIA 6 PHYSICIAN JOLENE ANY S GROUP SOURCE CULTURE 85276 [facility] CHLAMYDIA 6 PHYSICIAN JOLENE ANY S GROUP SOURCE CYTP C/V 06241 BIO BIO AUTO THIN 6 REFERNCE REFERNCE LYR LABORATOR LABORATOR PREPJ SCR IES IES MNL RESCR PHYS DRUG TST G0477 [facility] PRESUMP;C 6 [facility] PBL BEING INC INC READ DC OPT OBV ONLY IADNA 17419 BIO BIO CHLAMYDIA 6 REFERNCE 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 TRACHOMAT IES IES IS AMPLIFIED PROBE TQ IADNA 98122 [facility] HERPES 6 PHYSICIAN JOLENE SIMPLX S GROUP VIRUS DIRECT PROBE TQ URINLS 56195 [facility] DIP 6 PHYSICIAN JOLENE STICK/TAB S GROUP LET REAGNT NON-AUTO MICRSCPY URINE 66774 [facility] 6 PHYSICIAN JOLENE TEST S GROUP VISUAL COLOR CMPRSN METHS IADNA 00229 BIO BIO TRICHOMON 6 REFERNCE 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 VAGINALIS IES IES AMPLIFIED PROBE TECH IAADIADOO 12594 [facility] 6 PHYSICIAN PHYSICIAN TRICHOMON S GROUP S GROUP VAGINALIS IADNA 65920 BIO BIO GARDNEREL 6 REFERNCE REFERNCE LA LABORATOR LABORATOR VAGINALIS IES [place] [address] [facility] THYROID 6 [facility] STIMULATI INC INC NG HORMONE TSH COLLECTIO 85485 [facility] N VENOUS 6 [facility] BLOOD INC INC VENIPUNCT URE IADNA NOS 13870 BIO BIO 6 REFERNCE REFERNCE AMPLIFIED LABORATOR LABORATOR PROBE TQ IES IES EACH ORGANISM IADNA 18606 BIO BIO HERPES 6 REFERNCE REFERNCE SOMPLX LABORATOR LABORATOR VIRUS IES IES AMPLIFIED PROBE TQ IADNA 92626 [facility] NEISSERIA 6 PHYSICIAN JOLENE S GROUP GONORRHOE AE DIRECT PROBE TQ IADNA 61204 BIO BIO NEISSERIA 6 REFERNCE 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 GONORRHOE IES IES AE AMPLIFIED PROBE TQ OBSTETRIC 43380 [facility] PANEL 6 [facility] INC INC INF AGT G0432 [facility] PERKS, IV AB DETECT 6 [facility] DULCE EIA TECH INC HIV-1&/HI V-2 SCR US PREG 76027 [place] [facility] UTERUS 6 MEDICAL CARLA REAL TIME IMAGING W/IMAGE ASS DCMTN TRANSVAG URINE 95034 [facility] TEST HLTH DEPT HLTH DEPT VISUAL APURVA APURVA COLOR CMPRSN METHS REMOVAL 65922 [facility] RODRIGUEZ NON-BIODE 5 PHYSICIAN ASYA GRADABLE S GROUP DRUG DELIVERY IMPLANT URNLS DIP 33275 [facility] 5 ALYSSA SHAH STICK/TAB SELENA WALTERS LET REAGENT AUTO MICROSCOP Y GONADOTRO 44399 [facility] PIN 5 ALYSSA SHAH CHORIONIC SELENA TADEOENCE QUALITATI VE BLOOD 48506 [facility] COUNT 5 ALYSSA SHAH COMPLETE SELENA WALTERS AUTO&AUTO DIFRNTL WBC CULTURE 87623 [facility] BACTERIAL 5 ALYSSA WALTERS QUANTTATI VE COLONY COUNT URINE CUL BACT 77053 [facility] AEROBIC 5 ALYSSA SHAH ADDL SELENA WALTERS METHS DEFINITIV E EA ISOL BASIC 24192 [facility] METABOLIC 5 ALYSSA SHAH PANEL SELENA WALTERS CALCIUM TOTAL COLLECTIO [address] N VENOUS 5 ALYSSA SHAH BLOOD SELENA WALTERS VENIPUNCT URE THERAPEUT 88799 [facility] IC 5 [facility] INJECTION INC INC IV PUSH EACH NEW DRUG BASIC 84216 [facility] METABOLIC 5 [facility] PANEL INC INC CALCIUM TOTAL URINE 70827 [facility] 5 [facility] TEST INC INC VISUAL COLOR CMPRSN METHS URNLS DIP 93480 [facility] 5 [facility] HOSP STICK/TAB INC [place] [address] [facility] INFUSION 5 [facility] THERAPY/P INC INC ROPHYLAXI S /DX [address] [place] [address] [facility] ABDOMEN & 5 [facility] HOSP PELVIS INC INC W/O CONTRAST MATERIAL IADNA 95733 [facility] CHLAMYDIA 5 [facility] DISTRICT [facility] DEPT [facility] DEPT TRACHOMAT APURVA APURVA IS AMPLIFIED PROBE TQ SMR PRIM 67271 [facility] SRC WET 5 [facility] DEPT [facility] DEPT NFCT AGT APURVA APURVA WET Q0111 [facility] MOLINA 5 DISTRICT [facility] INCL PREP [facility] DEPT [facility] DEPT VAGINAL APURVA APURVA CERV/SKIN SPECIMENS IADNA 23633 [facility] NEISSERIA 5 [facility] DISTRICT [facility] DEPT [facility] DEPT GONORRHOE APURVA APURVA AE AMPLIFIED PROBE TQ CONTRACEP A4267 [facility] TIVE 5 DISTRICT DISTRICT SUPPLY [facility] DEPT [facility] DEPT [place] [address] [facility]LAKEUTCHER ABDOMEN & 4 MEDICAL CARLA PELVIS IMAGING W/O ASS CONTRAST MATERIAL MRI ANY [address] JT UPPER 4 ALYSSA SHAH EXTREMITY MED CTR MED CTR W/O PIPE OUT WORKER ST PIPE OUT WORKER ST CONTRAST MATRL RADEX 24492 RADIOLOGY DEVANTE SHOULDER 4 MAR COMPLETE ASSOCIATE MINIMUM 2 S OF NOTH VIEWS GONADOTRO [address] PIN 4 ALYSSA ALYSSA CHORIONIC FT FT BRYAN BRYAN QUALITATI VE SHOULDER L3650 [facility] ORTHOSIS 4 TECHNOLOG TECHNOLOG FIG 8 IES INC IES INC ABDUCT RESTRAINE R PREFAB RADEX 07243 RADIOLOGY DEVANTE ELBOW 4 MAR COMPLETE ASSOCIATE MINIMUM 3 [place] [address] [facility] STREPTOCO 3 [facility] CCUS INC INC GROUP A CUL BACT 66446 [facility] XCPT 3 [facility] URINE INC INC BLOOD/STO OL AEROBIC ISOL CUL BACT 22165 COMBINED COMBINED XCPT 2 PHYSICIAN PHYSICIAN URINE S LA S LA BLOOD/STO OL AEROBIC ISOL ANTIBODY 76093 COMBINED COMBINED CHLAMYDIA 2 PHYSICIAN PHYSICIAN S LA S LA INSJ 06512 [facility] RODRIGUEZ NON-BIODE 2 ASYA ASYA GRADABLE DRUG DELIVERY IMPLANT URINE 84905 [facility]EL RODRIGUEZ 2 ASYA ASYA TEST VISUAL COLOR CMPRSN METHS ETONOGEST J7307 MICHAEL RODRIGUEZ REL 2 ASYA ASYA CNTRACPT IMPL SYS INCL IMPL & SPL IAADI 42785 [facility] [place] [address] [facility]REPT[facility] CCUS INC INC GROUP A IAADI 24323 [facility] B VIRUS INC INC REMOVAL 8623 [facility] OF NAIL 0 [facility] NAILBED INC INC OR NAIL FOLD OPHTH 89468 [facility] HINDS, MEDICAL 9 [place] XM&EVAL COMPRHNSV ESTAB PT 1/> DETERMINA 27386 [facility] HINDS TION 9 [place] REFRACTIV E STATE IAADI 90996 [facility] A VIRUS INC INC IAADI 10363 [facility] [place] [address] [facility] STREPT[facility] 9 [facility] CCUS INC INC GROUP A SCREENING 05507 DHS/CO [facility] TEST 8 HEALTH N CO PURE TONE [facility] AIR ONLY [facility] URNLS DIP 53428 [facility] STICK/TAB INC INC LET REAGENT AUTO MICROSCOP Y Encounters Encounter Start End Date Code Location Performer Type Date EMERGENCY 05762 [facility] DEPARTMEN INC T VISIT HIGH/URGE NT SEVERITY [facility] OUTPATIEN INC T EMERGENCY 39559 [facility] DEPT 7 7 PHYSICIAN VISIT , [facility] HIGH SEVERITY& THREAT [facility] - 7 7 [facility] OUTPATIEN INC T OFFICE 14116 [facility] T VISIT 5 INC MINUTES OFFICE 67004 [facility] 7 7 ALYSSA HORNER T VISIT 25 PHYSICIAN MINUTES [facility] - 7 7 ALYSSA OUTPATIEN T [facility] - 6 6 [facility] OUTPATIEN E [facility] EMERGENCY 31262 ROXANN MORALESCESAR HAQ 6 6 PHYSICIAN DEPARTMEN S, [facility] T VISIT MODERATE SEVERITY [facility] 6 6 N INPATIENT COMMUNTIY [facility] - 6 6 [facility] OUTPATIEN INC [facility] - 6 6 [facility] OUTPATIEN INC T OFFICE 22692 [facility] OUTPATIEN 6 6 PHYSICIAN JOLENE T VISIT S GROUP 15 MINUTES OFFICE 64947 [facility] OUTPATIEN 6 6 ALYSSA RUSSO T VISIT 15 PHYSICIAN MINUTES [facility] ST - 6 6 ALYSSA OUTPATIEN [facility] EMERGENCY 71590 [facility] 6 6 EMERGENCY NICOLE DEPARTMEN T VISIT PHYSICIAN HIGH/URGE S NT SEVERITY OFFICE [address]93 ST OUTPATIEN 6 6 ALYSSA T VISIT MED [facility] [address] MINUTES OFFICE 68832 [facility] 6 6 PHYSICIAN JOLENE T VISIT S GROUP 15 MINUTES OFFICE 87944 [facility] OUT[facility] 6 6 PHYSICIAN JOLENE T VISIT S GROUP 15 MINUTES OFFICE 34716 [facility] OUT[facility] 6 6 PHYSICIAN JOLENE T VISIT S GROUP 15 MINUTES [facility] - 6 6 [facility] OUTPATIEN INC T OFFICE [id number] [facility] MARIANO OUTPATIEN 6 6 ALYSSA MAR T NEW 30 MINUTES PHYSICIAN S OFFICE 16045 H [facility] OUTPATIEN 6 6 PHYSICIAN JOLENE T VISIT S GROUP 15 MINUTES OFFICE 30392 [facility] OUT[facility] 6 6 PHYSICIAN JOLENE T VISIT S GROUP 15 MINUTES OFFICE 20472 [facility] OUT[facility] 6 6 PHYSICIAN JOLENE T VISIT S GROUP 15 MINUTES INITIAL 41341 [facility] PREVENTIV 6 6 PHYSICIAN JOLENE E S GROUP MEDICINE NEW PT AGE 18-39YRS HOSPITAL CHANDU - 6 6 [facility] T EMERGENCY 64313 ROXANN MILLARD 6 6 PHYSICIAN BRITTANEY DEPARTMEN S, PLLC T VISIT HIGH/URGE NT SEVERITY OFFICE 11925 [facility] VISIT [facility] DEPT HLTH DEPT 15 APURVA APURVA MINUTES EMERGENCY 44248 ST. 5 5 ALYSSA DEPARTMEN SELENA T VISIT LOW/MODER SEVERITY EMERGENCY 36920 TYREL MONGE 5 5 EMERGENCY DEPARTMEN T VISIT PHYSICIAN HIGH/URGE S NT SEVERITY [facility]PITAL [facility] - 5 5 [facility] 47504 CHANDU CHEEK, 5 5 [facility] T VISIT P MODERATE SEVERITY EMERGENCY 66225 CHANDU 5 5 [facility] T VISIT HIGH/URGE NT SEVERITY HOSPITAL CHANDU - 5 5 [facility] OUTPATIEN [facility] T INITIAL 08829 [facility] PRE[facility] 5 5 [facility] E TH DEPT [facility] DEPT MEDICINE APURVA APURVA NEW PT AGE 18-39YRS EMERGENCY 78324 TYREL GARCÍA 5 5 EMERGENCY [facility] T VISIT PHYSICIAN HIGH/URGE S NT SEVERITY EMERGENCY 35207 ST. 5 5 [facility] LOW[facility]MODER SEVERITY [facility] - 5 5 [facility] 05132 [facility] 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 EMERGENCY 84955 CHANDU 3 3 [facility] T VISIT LOW/MODER SEVERITY HOSPITAL CHANDU - 3 3 [facility] T EMERGENCY 53257 ZULEYMA AMOR 3 3 [facility] DEPARTMEN T VISIT MODERATE SEVERITY EMERGENCY 50462 [facility]U 1 1 [facility] T VISIT LOW/MODER SEVERITY EMERGENCY 68852 PRISCILLA BERMUDEZ 1 1 EMERGENCY III [facility] T VISIT MODERATE SEVERITY HOSPITAL CHANDU - 1 1 [facility] T OFFICE 78673 [facility] 1 1 [facility] T VISIT 5 [facility]ES OFFICE 75275 [facility] 1 1 [facility] T VISIT [facility] MIN[facility]ES OFFICE 98021 [facility] 1 1 [facility] T VISIT 5 [facility] MINUT[facility] EMERGENCY 32618 [facility]U 0 0 [facility] T VISIT LOW/MODER SEVERITY [facility]OSPITAL [facility] - 0 0 [facility] T OFFICE 32923 [facility] 0 0 [facility] T VISIT 5 [facility] MINUTES OFFICE 80724 [facility] 0 0 [facility] T VISIT 5 [facility] MINUTES OFFICE 34406 [facility] 9 9 [facility] T VISIT 5 [facility] MINUTES OFFICE 46909 [facility] 9 9 [facility] T VISIT 5 [facility] MINUT[facility] OFFICE 87397 [facility] 9 9 MID[facility] MIDDLE T VISIT 5 [facility] MINUTES OFFICE 78633 [facility] 9 9 [facility]DLE MIDDLE T VISIT 5 [facility] MINUTES EMERGENCY 04321 PRISCILLA CORRIGAN, 9 9 EMERGENCY [facility] DEPARTMEN SERVICES O T VISIT HIGH/URGE ASSOCIATE NT S SEVERITY HOSPITAL CH[facility]U - 9 9 [facility] T EMERGENCY 49640 CHANDU 9 9 [facility] T VISIT MODERATE SEVERITY OFFICE 27508 [place] [facility] 9 9 AGAPITO PHILLIPS T VISIT INTERNAL DOUG F 15 MED MINUTES OFFICE 17153 [place] [facility] [facility] 8 8 AGPAITO FLORES T VISIT INTERNAL 15 MED MINUTES INITIAL 31445 [facility] PREVENTIV 8 8 [facility] MEDICINE [facility] NEW PT AGE 5-11 YRS [facility] CHANDU - 8 8 [facility] T EMERGENCY 55951 [facility]U 8 8 [facility] T VISIT HIGH/URGE NT SEVERITY
--- OUTSIDE RECORDS SUMMARY | 2017-08-02 21:35 | External Medical Summary Rpt | CCD ---
Author Author , DERIK Organization DERIK Address Unknown Phone [email or web address] Immunization Name Date Rout CVX Reac Dose Comm Prov Is Faci e tion ent ider Refu lity Give sed n Tdap 07-2 115 999 Hist H196 No H196 , 5-20 oric Adso 08 al rbed Info rmat ion - Sour ce Unsp ecif ied DTaP 09-1 107 999 Hist H196 No H196 , UF 2-20 oric 00 al Info rmat ion - Sour ce Unsp ecif ied Matheus 09-1 10 999 Hist H196 No H196 o-IP 2-20 oric V 00 al Info rmat ion - Sour ce Unsp ecif ied MMR 09-1 3 999 Hist H196 No H196 2-20 oric 00 al Info rmat ion - Sour ce Unsp ecif ied DTP- 01-0 22 999 Hist H141 No H141 Hib 6-19 oric 98 al Info rmat ion - Sour ce Unsp ecif ied Matheus 01-0 2 999 Hist H141 No H141 o-OP 6-19 oric V 98 al Info rmat ion - Sour ce Unsp ecif ied MMR 01-0 3 999 Hist H141 No H141 6-19 oric 98 al Info rmat ion - Sour ce Unsp ecif ied Vari 11-0 21 999 Hist H141 No H141 cell 6-19 oric a 97 al Info rmat ion - Sour ce Unsp ecif ied Hep 11-0 8 999 Hist H141 No H141 B, 6-19 oric ped/ 97 al adol Info rmat ion - Sour ce Unsp ecif ied Matheus 06-1 2 999 Hist H141 No H141 o-OP 0-19 oric V 97 al Info rmat ion - Sour ce Unsp ecif ied DTP- 06-1 22 999 Hist H141 No H141 Hib 0-19 oric 97 al Info rmat ion - Sour ce Unsp ecif ied Matheus 03-3 2 999 Hist H141 No H141 o-OP 1-19 oric V 97 al Info rmat ion - Sour ce Unsp ecif ied DTP- 03-3 22 999 Hist H141 No H141 Hib 1-19 oric 97 al Info rmat ion - Sour ce Unsp ecif ied DTP- 11-2 22 999 Hist H141 No H141 Hib 6-19 oric 96 al Info rmat ion - Sour ce Unsp ecif ied Matheus 11-2 2 999 Hist H141 No H141 o-OP 6-19 oric V 96 al Info rmat ion - Sour ce Unsp ecif ied
--- OUTSIDE RECORDS SUMMARY | 2017-08-02 21:35 | External Medical Summary Rpt | CCD ---
Author Author , DERIK Organization DERIK Address Unknown Phone [email or web address] Immunization Name Date Rout CVX Reac Dose [...]
[2017-08-02 21:43] LABS: URINE BILIRUBIN - DIPSTICK NEGATIVE (NEG); URINE BLOOD NEGATIVE (NEG)
[2017-08-02 21:48] LABS: HEMOGLOBIN 13.9 g/dL (12.2-16.2); LYMPH # 2.7 K/mm3 (0.7-4.5); LYMPH % 21.9 % (10-50.0)
[2017-08-02 21:50] LABS: URINE SQUAMOUS CELLS TNTC #/hpf (0-5)
--- NOTE | 2017-08-02 21:55 | Emergency Room Report ---
History of Present Illness Time Seen by 2114 Presenting Problem in Triage Pt arrived:Walked Presenting Problem:REPORTS DAMIAN, VOMITING ALL DAY, AND LOWER RIGHT SIDE CRAMPS. REPORTS SHE IS ABOUT 7 WKS , AND HAS NOT SEEN OB DR YET. REPORTS NO FEVERS. 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 N Clinical Suspician of Infection? N Mental Status: 1 - Regular (Normal Baseline) Sepsis Risk:Low Sepsis Risk Have you (or family members/close friends) recently traveled outside the [place]? N If Yes, where/when: Have you had exposure to infectious disease within the past month? N TB? Other? Specify: Source patient, RN notes reviewed, family, old records Exam Limitations no limitations Comment pt with bilat sharp abd pain over the last few weeks with no fever or gu sx and no vag bleeding - she is about 7 weeks - today with global damian with no fever or rash and no neuro sx and no sinus issues Cardiac Chest Pain Chest pain indicative of cardiac No Timing/Duration this evening Severity moderate ALLERGIES Coded Allergies: No Known Allergies (02/19/17) Home Medications Reported Medications MULTIVIT-MIN W/FE-FA ( Multivitamin Tablet) 1 TAB PO DAILY History Medical History General CAD? No Angina: No OH: No Hypertension? No Hyperlipidemia? No CHF? No DVT? No PE? No COPD? No Asthma? Yes Anemia? No GERD? No Gastric ulcers? No GI Bleed? No Hernia? No Thyroid Problems? No Hypothyroidism? No CVA? No Seizures? No Diabetes? No Renal Insuffiency? No End Stage Renal Disease? No UTI? Yes Stones? No BPH? No GB Disease: No Nephritic Syndrome? No Asplenia? No Hepatitis? No Sickle Cell Disease? No Arthritis? No Migraines? No Cataracts? No Glaucoma? No MRSA? No HIV? No TB? No Anxiety? Yes Depression? Yes Cancer? No More? No Immunization Hx DT/Tetanus 1-4 YRS Flu Refused Pneumonia Never Had Surgical Hx Previous Surgery?N [employer]ANT Hx LMP 1 Month Ago Est.Due Date 03/[address] SHARMILA CORTEZ Social History Smoking Hx Smoker: Former Smoker Tobacco: No Packs/day 1 1/2 - 2 Packs Alcohol Alcohol: No Drugs none Review of Systems All Other Systems Reviewed and Negative Constitutional denies fever Eyes denies drainage ENT denies: ear pain, epistaxis, throat pain. Respiratory denies cough, denies shortness of breath, denies wheezing Cardiovascular denies chest pain, denies palpitations, denies syncope Gastrointestinal see HPI, abdominal pain, denies diarrhea, denies vomiting, other Genitourinary denies: discharge, abnormal vaginal bleeding, dysuria, frequency, hesitancy, hematuria. Musculoskeletal denies back pain, denies joint pain, denies joint swelling, denies neck pain Skin denies rash Psychiatric/Neurological denies headache, denies seizure Physical Exam Vital Signs Vital Signs Date Time Temp Pulse Resp B/P Pulse O2 O2 Flow FiO2 Ox Delivery Rate 08/02 2216 76 16 94/53 100 08/02 2113 98.8 79 16 112/60 98 - WBC >12,000 or <4,000 or 10% bands? 2 or more SIRS Criteria Met? B/P:/53 MAP:77 Creatinine >2.0? UA output<0.5ml/kg/hr for 2 hrs? Platelet count >100,000? Lactate >2.0mmol/1? INR >1.2 or PTT > than 60 sec? Evidence of Organ Dysfunction? Provider documented clinical suspician of infection? N Sepsis Criteria Count: 0 Sepsis Risk: Low Sepsis Risk General Appearance no apparent distress Eye Exam - bilateral eye PERRL, bilateral eye EOMI Ear, Nose, Throat normal ENT inspection, normal pharynx Neck supple Respiratory Status No: respiratory distress. Lung Sounds bilateral: normal breath sounds. 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 No Results/Orders Laboratory Tests 08/02/172137: Sodium 140, Potassium 3.5, Chloride 103, Carbon Dioxide 29, BUN 8, Creatinine 0.6, Estimated Creat Clear 127, Estimated GFR (MDRD) 126, Glucose 81, Calcium 9.4 08/02/172137: Total Bilirubin 0.2, Direct Bilirubin 0.06, Indirect Bilirubin 0.14, AST 17, ALT 17, Alkaline Phosphatase 104, Total Protein 7.9, Albumin 4.3, WBC 12.2 H, RBC 4.56, Hgb 13.9, Hct 41.5, MCV 91.1, RDW 12.6, Plt Count 223, MPV 8.6, Gran % 70.2, Gran # 8.6 H, Lymphocytes % 21.9, Monocytes % 6.6, Eosinophils % 0.9, Basophils % 0.4, Lymphocytes # 2.7, Monocytes # 0.8, Eosinophils # 0.1, Basophils # 0.1, PUBS MCHC 33.5, MCH 30.5 08/02/172124: Urine Color YELLOW, Urine Appearance SL CLOUDY, Urine pH 7.5, Ur Specific [place] 1.015, Urine Protein NEGATIVE, Urine Ketones NEGATIVE, Urine Blood NEGATIVE, Urine Nitrate NEGATIVE, Urine Bilirubin NEGATIVE, Urine Urobilinogen 0.2, Ur Leukocyte Esterase NEGATIVE, Urine RBC 3-5, Urine WBC 3-5, Ur Squamous Epith Cells TNTC, Amorphous Sediment 3+, Urine Bacteria 2+, Urine Glucose NEGATIVE 08/02/172120: Influenza Type A Ag NOT DETECTED, Influenza Type B Ag NOT DETECTED Current Medication Orders Sig/Efrain Start time Last Medication Dose Route Stop Time Status Admin Sodium Chloride 1,000 ML .STK-MED ONE 08/02 2131 DC IV Sodium Chloride 10 ML PRN PRN 08/02 2130 AC IV 08/03 2123 Sodium Chloride 1,000 ML .Q4H 08/02 2130 AC 08/02 IV 08/03 Sodium Chloride 10 ML PRN PRN 08/02 2130 AC IV 08/03 2130 Orders Procedure Date/time Status LIVER PROFILE 08/02 2155 Complete CULTURE, URINE 08/02 2125 Active IV SALINE LOCK 08/02 2123 Active URINALYSIS/COMPLETE 08/02 2123 Complete URINE 08/02 2123 Complete CBC WITH AUTO DIFF 08/02 2123 Complete BASIC METABOLIC PROFILE 08/02 2123 Complete INFLUENZA A&B ANTIGENS 08/02 2119 Complete Departure Departure Time of Disposition 2226 Disposition DC Home or Self Care(routine) Clinical Impression Primary Impression: Headache Qualifiers: Headache type: unspecified Headache chronicity pattern: acute headache Intractability: not intractable Qualified Code: R51 - Headache Secondary Impressions: Qualifiers: Weeks of gestation: less than 8 weeks Qualified Code: Z3A.01 - Less than 8 weeks gestation of Condition STABLE Referrals KIM DAVENPORT (Family) Patient Instructions DI for -- Discomforts and Remedies Additional Instructions fluids and tyenol and see pcp for follow up and your ob dr Discharge Counseling Counseled pt/family regarding diagnosis, test results, follow up needs ED Critical Care Critical Care No at 5298
[2017-08-02 22:10] LABS: BILIRUBIN, INDIRECT 0.14 mg/dL (0-0.9)
[2017-08-02 22:40] VITALS: BP 94/53
== END 2017-08-02 22:41 | disposition home or self-care (01) ==
LOC: ER 21:08
PROVIDERS: Emergency Medicine
DX: R51 Headache (principal); Z3A.01 Less than 8 weeks gestation of pregnancy; Z87.891 Personal history of nicotine dependence; J45.909 Unspecified asthma, uncomplicated